=== PATIENT | male | born 1930 | race Caucasian/White ===

== ENCOUNTER 2018-06-29 20:04 | Emergency (ER) | payer MEDICARE, BC ==
[2018-06-29] MEDS ORDERED: Silver Sulfadiazine 1% Crm 50 GM Tube TOP ONE (20:06)
--- NOTE | 2018-06-29 20:25 | EDM.PDOC ---
ED HPI GENERAL MEDICAL PROBLEM - General Chief Complaint: Burn Stated Complaint: Burn to right hand Time Seen by Provider: 06/29/18 20:06 Source of Information: Reports: Patient, Police, RN, RN Notes Reviewed History Limitations: Reports: No Limitations - History of Present Illness Onset: Today Onset Date: 06/29/18 ED ROS GENERAL - Review of Systems Review Of Systems: See Below Constitutional: Denies: Fever, Chills Respiratory: Denies: Shortness of Breath, Cough Cardiovascular: Denies: Chest Pain, Palpitations Skin: Reports: Burn(s) (right hand) Neurological: Reports: No Symptoms ED EXAM, BURN/SMOKE INHALATION - Physical Exam Exam: See Below Exam Limited By: No Limitations General Appearance: Alert, No Apparent Distress Respiratory: No Respiratory Distress, Lungs Clear, Normal Breath Sounds Cardiovascular: Normal Peripheral Pulses, Regular Rate, Rhythm Peripheral Pulses: 2+: Radial (L), Radial (R) Neurological: Alert, No Motor/Sensory Deficits Skin Exam: Wound/Incision (2nd degree burn to the dorsum of the right hand; skin slough evident; no bleeding or evidence of infection; skin ) ED PROCEDURES - Laceration/Wound Repair Right Hand Progress/Comments: 2nd degree burn care provided to dorsum of right hand. Silvadene cream applied and covered with telfa and wrapped with Kerlix. Patient tolerated well. No complications. Course - Orders/Labs/Meds Meds: Medications Discontinued Medications Generic Name Dose Route Start Last Admin Trade Name Freq PRN Reason Stop Dose Admin Silver Sulfadiazine 1 gm 06/29/18 20:06 Silvadene 1% Cream 50 Gm TOP 06/29/18 20:07 ONETIME ONE Departure - Departure Time of Disposition: 20:36 Disposition: Home, Self-Care 01 Condition: Good Clinical Impression: Second degree burn of back of right hand Qualifiers: Encounter type: initial encounter Qualified Code(s): T23.261A - Burn of second degree of back of right hand, initial encounter - Discharge Information *PRESCRIPTION DRUG MONITORING PROGRAM REVIEWED*: Not Applicable *COPY OF PRESCRIPTION DRUG MONITORING REPORT IN PATIENT YOEL: Not Applicable Instructions: Second-Degree Burn, Adult Referrals: Malaika Henderson NP [Ordering Only Provider] - [facility] [Ordering Only Provider] - Forms: ED Department Discharge Additional Instructions: 1. Stay well hydrated and rest 2. Keep bandage on until seen by Primary Care Provider 3. Take pain medication as directed 4. Go to [facility] tomorrow for a recheck of the burn and make sure it is ok - Problem List Review Problem List Initiated/Reviewed/Updated: Yes - Assessment/Plan Assessment:: 2nd degree burn to dorsum of right hand Plan: Burn care provided. Instructions given. Will have patient be seen in clinic tomorrow for a recheck and wound care.
[2018-06-29] MEDS ORDERED: Take Home: traMADol 50 MG, 4 Tab Pack PO ONE (20:36)
== END 2018-06-29 20:58 | disposition home or self-care (01) ==
LOC: VM.ED 20:04
DX: T23.261A Burn of second degree of back of right hand, initial encounter (principal)
CPT/HCPCS: 16020; 99283; 99283-GF; A9270-GY

== ENCOUNTER 2018-10-16 08:56 | Emergency (ER) | payer MEDICARE, BC ==
--- NOTE | 2018-10-16 09:54 | EDM.PDOC ---
ED HPI GENERAL MEDICAL PROBLEM - General Chief Complaint: Skin Complaint Stated Complaint: ER VISIT Time Seen by Provider: 10/16/18 09:10 Source of Information: Reports: Patient History Limitations: Reports: No Limitations - History of Present Illness INITIAL COMMENTS - FREE TEXT/NARRATIVE: Patient comes in the emergency department with complaints of lower extremity rash. Patient states this started about 7-10 days ago. It has slowly progressed throughout the 70s. He told family this morning that is burning, throbbing, and stabbing. He said some numbness and tingling in lower extremities as well. He does not have primary care provider and does not take any daily medications. He does not have any vascular compromise history. The patient has noted that he has severe swelling of the right lower extremity as well. Denies any fever, nausea, diarrhea, chest pain, or SOB. He has been relatively healthy prior to this. Patient is a poor historian and daughter states he has stated intermittently he has been having pain and discomfort. Onset: Gradual Quality: Reports: Ache, Burning, Throbbing Improves with: Reports: None Worsens with: Reports: None Associated Symptoms: Reports: No Other Symptoms - Related Data Allergies Allergy/AdvReac Type Severity Reaction Status Date / Time No Known Allergies Allergy Verified 06/30/18 01:50 Home Meds: Home Meds . [No Known Home Meds] 06/30/18 [History] Past Medical History - Past Health History Medical/Surgical History: Denies Medical/Surgical History Genitourinary History: Reports: Renal Calculus - Past Surgical History GI Surgical History: Reports: Appendectomy Social & Family History - Tobacco Use Smoking Status *Q: Never Smoker ED ROS GENERAL - Review of Systems Review Of Systems: See Below HEENT: Reports: No Symptoms Respiratory: Reports: No Symptoms Cardiovascular: Reports: No Symptoms Endocrine: Reports: No Symptoms GI/Abdominal: Reports: No Symptoms : Reports: No Symptoms Musculoskeletal: Reports: Leg Pain Skin: Reports: Dryness Neurological: Reports: No Symptoms Psychiatric: Reports: No Symptoms Hematologic/Lymphatic: Reports: No Symptoms Immunologic: Reports: No Symptoms ED EXAM, SKIN/RASH Exam: See Below Exam Limited By: Altered Mental Status General Appearance: Alert, WD/WN, No Apparent Distress Throat/Mouth: Normal Inspection, Normal Lips, Normal Oropharynx Head: Atraumatic, Normocephalic Neck: Normal Inspection, Supple, Non-Tender, Full Range of Motion Respiratory/Chest: No Respiratory Distress, Lungs Clear, No Accessory Muscle Use , Chest Non-Tender Cardiovascular: Normal Peripheral Pulses, Regular Rate, Rhythm Rectal (Males) Exam: Normal Exam, Normal Rectal Tone Back Exam: Normal Inspection, Full Range of Motion Extremities: Normal Inspection, Normal Range of Motion Neurological: Alert, Oriented Skin: Erythema, Rash (bilateral ankles ) Location, Skin: Lower Extremity, Right, Lower Extremity, Left Characteristics: Patchy, Petechial, Erythematous Associated features: Warmth, Tenderness, Swelling, Weeping Course - Vital Signs Last Recorded V/S: Last Vital Signs Temp 36.6 C 10/16/18 11:14 Pulse 67 10/16/18 11:14 Resp 16 10/16/18 11:14 BP 138/71 10/16/18 11:14 Pulse Ox 96 10/16/18 11:14 - Orders/Labs/Meds Labs: Laboratory Tests 10/16/18 10/16/18 10/16/18 Range/Units 09:25 09:25 09:25 WBC 7.5 (4.0-10.0) x10^3/uL RBC 4.54 (4.5-6.0) x10^6/uL Hgb 14.2 (14.0-18.0) g/dL Hct 42.2 (40.0-52.0) % MCV 93.0 (78.0-93.0) fL MCH 31.3 (26.0-32.0) pg MCHC 33.6 (32.0-36.0) g/dL RDW Coeff of Amy 12.8 (10.0-15.0) % Plt Count 244 (130-400) x10^3/uL Neut % (Auto) 66.1 (50.0-80.0) % Lymph % (Auto) 21.8 L (25.0-50.0) % Lewis % (Auto) 7.0 (2.0-11.0) % Eos % (Auto) 4.4 H (0.0-4.0) % Baso % (Auto) 0.7 (0.2-1.2) % ESR (0-16) mm/hr PT 11.7 (10.0-12.8) SEC INR 1.0 L (2.0-3.5) D-Dimer, Quantitative 0.75 H (<=0.58) mg/LFEU Sodium 146 H (136-145) mmol/L Potassium 4.0 (3.5-5.1) mmol/L Chloride 108 H (98-107) mmol/L Carbon Dioxide 27 (21-32) mmol/L Anion Gap 15.0 (10-20) mmol/L BUN 17 (7-18) mg/dL Creatinine 1.2 (0.70-1.30) mg/dL Est Cr Clr Drug Dosing 47.06 mL/min Estimated GFR (MDRD) 57 Glucose 141 H (74-106) mg/dL Lactic Acid (0.4-2.0) mmol/L Calcium 8.7 (8.5-10.1) mg/dL Corrected Calcium 9.50 (8.5-10.1) mg/dL Total Bilirubin 0.6 (0.2-1.0) mg/dL AST 35 (15-37) U/L ALT 37 (16-63) U/L Alkaline Phosphatase 125 H (46-116) U/L Creatine Kinase 126 (39-308) U/L C-Reactive Protein 0.5 (<=0.9) mg/dL NT-Pro-B Natriuret Pep 468 H (<=450) pg/mL Total Protein 7.1 (6.4-8.2) g/dL Albumin 3.0 L (3.4-5.0) g/dL Globulin 4.1 Albumin/Globulin Ratio 0.73 10/16/18 10/16/18 Range/Units 09:25 09:25 WBC (4.0-10.0) x10^3/uL RBC (4.5-6.0) x10^6/uL Hgb (14.0-18.0) g/dL Hct (40.0-52.0) % MCV (78.0-93.0) fL MCH (26.0-32.0) pg MCHC (32.0-36.0) g/dL RDW Coeff of Amy (10.0-15.0) % Plt Count (130-400) x10^3/uL Neut % (Auto) (50.0-80.0) % Lymph % (Auto) (25.0-50.0) % Lewis % (Auto) (2.0-11.0) % Eos % (Auto) (0.0-4.0) % Baso % (Auto) (0.2-1.2) % ESR 17 H (0-16) mm/hr PT (10.0-12.8) SEC INR (2.0-3.5) D-Dimer, Quantitative (<=0.58) mg/LFEU Sodium (136-145) mmol/L Potassium (3.5-5.1) mmol/L Chloride (98-107) mmol/L Carbon Dioxide (21-32) mmol/L Anion Gap (10-20) mmol/L BUN (7-18) mg/dL Creatinine (0.70-1.30) mg/dL Est Cr Clr Drug Dosing mL/min Estimated GFR (MDRD) Glucose (74-106) mg/dL Lactic Acid 2.5 H* (0.4-2.0) mmol/L Calcium (8.5-10.1) mg/dL Corrected Calcium (8.5-10.1) mg/dL Total Bilirubin (0.2-1.0) mg/dL AST (15-37) U/L ALT (16-63) U/L Alkaline Phosphatase (46-116) U/L Creatine Kinase (39-308) U/L C-Reactive Protein (<=0.9) mg/dL NT-Pro-B Natriuret Pep (<=450) pg/mL Total Protein (6.4-8.2) g/dL Albumin (3.4-5.0) g/dL Globulin Albumin/Globulin Ratio Departure - Departure Time of Disposition: 11:10 Disposition: Home, Self-Care 01 Condition: Good Clinical Impression: Swelling of lower extremity, Rash - Discharge Information *PRESCRIPTION DRUG MONITORING PROGRAM REVIEWED*: Not Applicable *COPY OF PRESCRIPTION DRUG MONITORING REPORT IN PATIENT YOEL: Not Applicable Instructions: Edema, [id number] Referrals: PCP,None [Primary Care Provider] - Forms: ED Department Discharge - Problem List Review Problem List Initiated/Reviewed/Updated: Yes - Assessment/Plan Assessment:: 1. redness to lower extremities with swelling and pain Plan: 1. Labs completed in the ER. 2. Consult completed with [facility] Dr. Kirkpatrick. He agrees the patient is in need of further evaluation and treatment. Will have the patient present to the hospital for a direct admit. Family will take the patient. 3. All questions and concerns addressed prior to discharge.
== END 2018-10-16 11:43 | disposition home or self-care (01) ==
LOC: VM.ED 08:56
DX: R21 Rash and other nonspecific skin eruption (principal); R22.33 Localized swelling, mass and lump, upper limb, bilateral
CPT/HCPCS: 36415; 80053; 82550; 83605; 83880; 85025; 85379; 85610; 85652; 86140; 99284; 99284-GF